=== PATIENT | female | born 1995 | race Hispanic/Latino ===

== ENCOUNTER 2019-05-03 23:09 | Emergency (ER) | payer MEDICARE, OTHER ==
[~2019-05-03] VITALS: Ht 149.9 cm; Wt 52.2 kg
--- OUTSIDE RECORDS SUMMARY | 2019-05-03 23:12 | XMS REPORT ---
Author Author [facility] Address Unknown Phone Unavailable Care Team Providers Care Drop Clipper Name Role Phone Unavailable Unavailable Problems This patient has no known problems. Allergies, Adverse Reactions, Alerts This patient has no known allergies or adverse reactions. Medications This patient has no known medications. Encounters Start Date/Time End Date/Time Encounter Type Admission Type Attending Clinicians Care Facility Care Department Encounter ID 2019-03-15 22:29:00 2019-03-15 22:29:00 Emergency E [facility] [id number] Results Test Description Test Time Test Comments Text Results Atomic Results Result Comments CT, SOFT TISSUE NECK, WITH IV CONTRAST 2018-07-14 17:22:00 FINAL REPORT History: History: Evaluate thyroid lesion.Comparison studies: Thyroid ultrasound . Technique: Axial, coronal and sagittal images from the skull base to the thoracic inlet.Coronal and sagittal images reconstructed from the axial data. Dose modulation, iterative reconstruction, and/or weight based adjustment of the mA/kV was utilized to reduce the radiation dose to as low as reasonably achievable. Intravenous contrast: 100 cc of Omnipaque 300. Findings: Thyroid gland: Complex cystic right inferior thyroid lobe lesion with internal septations measures 3.8 x 2.6 x 2.5 cm (SI x AP x TV) and correlates to lesion seen on prior ultrasound. No intralesional calcification identified. The lesion exerts mild mass effect on trachea which is otherwise patent. No evidence of tracheal invasion. The left thyroid lobe is homogeneous and normal in size. Soft tissues: Vagal nerve stimulator in place with leads in the anterior left neck with electrodes positioned in the posterior left carotid space at the C7 vertebral level. Pharynx: No mass, no enhancing abnormalities.Larynx: No mass or enhancing abnormalities. The left vocal cord is slightly medialized. Lymph nodes:No radiographically significant adenopathy. Vessels: Patent carotid and vertebral arteries.Patent bilateral internal jugular veins. Glands (parotid and submandibular): Normal in size and symmetric. No masses. Incidental 2 mm calcification along the lateral margin of the right submandibular easton and may reflect dystrophic calcification or sialolith. No glandular ductal dilatation. Orbits: No abnormalities.Paranasal sinuses: Clear.Temporal bones: No gross abnormalities.Skull base and facial bones: Intact. Cervical spine: Disc height maintained. Patent canal and foramina. Straight curvature may be positional. IMPRESSION: 1.Complex 3.8 cm right inferior thyroid lobe lesion exerts mild mass effect on the trachea which is otherwise patent. Recommend FNA to further evaluate.2.No radiographically significant cervical lymphadenopathy.3.Medialized left vocal fold which raises the possibility for left vocal cord paresis. Vocal cord mobility could assess by direct visualization.4.Left vagal nerve stimulator in place. Signed: Earl Martinez MDReport Verified Date/Time: 07/14/2018 17:22:23 Reading Location: [facility] Reading Room [address] [place] [address] , NECK 2018-07-01 12:38:00 Reason for Exam:->NECK MASS FINAL REPORT EXAM: Thyroid UltrasoundINDICATION: NECK MASS COMPARISON: None TECHNIQUE: Transverse and sagittal images were obtained of the thyroid gland. FINDINGS: Thyroid gland:Size: Right lobe: 6 x 2.5 x 3.4 cm, increased in sizeLeft lobe: 3 x 0.8 x 1.1 cm, Normal in size Isthmus: 0.2 cm, Normal in sizeAppearance: Homogeneous echotexture without increased vascularit yMasses/Nodules: Right lobe: 4 x 2.3 x 3.4 cm mixed solid and cystic (1 pt) nonvascular nodule in the superior and inferior pole with lobulated margin (2 pts) and multiple internal septations, lobjg-zfas-qkhm (0 pts), hypoechoic (2 pts), and no calcifications (0 pts). TR4c (>1.5 cm), Moderately Suspicious: FNA. Left lobe:None Parathyroid:No focal parathyroid masses. IMPRESSION: Multilobulated complex cyst with thick internal septations which appears to involve the right thyroid lobe but cannot exclude adjacent to it with compression of normal thyroid parenchyma. Recommend CT neck with contrast for better localization and characterization of the lesion and exclude a complicated brachial cleft cyst rather than a thyroid cyst. If CT neck demonstrates intrathyroid location of the lesion, then recommend: TR4c (>1.5 cm), Moderately Suspicious: FNA. TI-RADS Lexicon:TR1, Benign: No FNATR2, Not Suspicious: No FNA.TR3a (<1.5 cm): No follow-up.TR3b (1.5-2.5 cm), Mildly Suspicious: Follow at 1, 3, 5 years.TR3c (>2.5 cm), Mildly Suspicious: FNA.TR4a (<1.0 cm): No follow- up.TR4b (1.0-1.5 cm), Moderately Suspicious: Follow at 1, 2, 3, 5 years.TR4c (>1.5 cm), Moderately Suspicious: FNA.TR5a (<0.5 cm): No follow-up.TR5b (0.5-1.0 cm), Highly Suspicious: Follow at 1, 2, 3, 4, 5 years.TR5c (>1.0 cm), Highly Suspicious: FNA.*Rebiopsy if new suspicious features *No recommendation at this time for significant interval growth. Nodule Characteristics:*Benign features: cystic, hyperechoic, comet-tail artifact, complete halo*Minor suspicious features: solid, hypoechoic, other calcifications*Major suspicious features: microcalcifications, marked hypoechoic (less than strap muscle), suspicious lymph nodes, taller than wide, lobulated or ill-defined margins. Literature:ACR Thyroid Imaging, Reporting and Data System (TI-RADS): White Paper of the ACR TI- RADS Committee. J Am Ana Maria Radiol 2017. Signed: Nik Linares MDReport Verified Date/Time: 07/01/2018 12:38:57 Reading Location: [facility] Reading Room [address] [place] [address]
[2019-05-03 23:58] VITALS: BP 118/68
== END 2019-05-03 23:58 | disposition home or self-care (01) ==
LOC: FSED 23:09
DX: S01.21XA Laceration without foreign body of nose, initial encounter (principal); W20.8XXA Other cause of strike by thrown, projected or falling object, initial encounter; Y92.008 Other place in unspecified non-institutional (private) residence as the place of occurrence of the external cause
CPT/HCPCS: 99282

== ENCOUNTER 2019-06-02 01:15 | Emergency (ER) | payer OTHER ==
[~2019-06-02] VITALS: Ht 149.9 cm; Wt 54.4 kg
[2019-06-02 01:56] VITALS: BP 124/70
== END 2019-06-02 01:55 | disposition home or self-care (01) ==
LOC: FSED 01:15
DX: S00.511A Abrasion of lip, initial encounter (principal); W01.0XXA Fall on same level from slipping, tripping and stumbling without subsequent striking against object, initial encounter; Y92.008 Other place in unspecified non-institutional (private) residence as the place of occurrence of the external cause; G40.909 Epilepsy, unspecified, not intractable, without status epilepticus
CPT/HCPCS: 99282

== ENCOUNTER 2019-06-06 18:02 | Emergency (ER) | payer OTHER ==
[~2019-06-06] VITALS: Ht 149.9 cm; Wt 54.4 kg
--- NOTE | 2019-06-06 19:40 | Diagnostic Imaging Report ---
EXAMINATION: Head CT without contrast. HISTORY:Seizure and fall. COMPARISON:None. TECHNIQUE: Multidetector axial images were obtained from the foramen magnum to the vertex without contrast. The images were reconstructed using brain and bone algorithms. Thin section brain images were reformatted into coronal and sagittal planes. Dose modulation, iterative reconstruction, and/or weight based adjustment of the mA/kV was utilized to reduce the radiation dose to as low as reasonably achievable. Intravenous contrast: None IMAGE QUALITY: Acceptable. FINDINGS: Skull/scalp: No lytic or blastic. lesions. No surgical changes. Parenchyma: No abnormal density. No acute hemorrhage, mass or acute major vascular territorial infarct. Arteries: No density suggestive of thrombosis. Dural sinuses: No abnormal density suggestive of thrombosis. Ventricles: No hydrocephalus or displacement. Extra-axial spaces: No abnormal density. Brain volume: Normal for age. Craniocervical junction: No mass, Chiari malformation, or basilar invagination. Sella: No mass. Paranasal/mastoid sinuses: Imaged portions unremarkable. IMPRESSION: No intracranial abnormality. Signed by: Dr. Aranza Russo M.D. on 06/06/2019 7:37 PM
--- NOTE | 2019-06-06 19:49 | Diagnostic Imaging Report ---
History:Seizure and fall. Comparison studies: None Technique: Axial images were obtained through the maxillofacial region. Coronal and sagittal images reconstructed from the axial data. Dose modulation, iterative reconstruction, and/or weight based adjustment of the mA/kV was utilized to reduce the radiation dose to as low as reasonably achievable. Intravenous contrast: None Findings: Soft tissues: Mild perinasal soft tissue swelling. Bones: Acute displaced fracture of the nasal bone. Orbits: Globes: Intact Extra or intraconal abnormalities: None. Paranasal sinuses: Clear Incidental finding: Hypodense cystic lesion in the right lobe of thyroid gland is partially visualized and approximately measures 2.6 x 1.7 cm. Partially visualized radiopaque catheter in the left lateral neck. Metallic radiopaque density in left lateral deep neck space posterior lateral tubercle superior pole of left lobe of thyroid gland, possibly represents a surgical clip. Nonspecific prominent bilateral level 2 lymph nodes may be reactive. IMPRESSION: 1. Acute displaced fracture of the nasal bone with overlying soft tissue swelling. 2. No other acute posttraumatic abnormality. 3. Partially visualized 2.6 cm hypodense cystic lesion in right lobe of thyroid gland, can be followed up with dedicated thyroid ultrasound if previous workup has not been done. Signed by: Dr. Aranza Russo M.D. on 06/06/2019 7:46 PM
== END 2019-06-06 20:20 | disposition home or self-care (01) ==
LOC: FSED 18:02
DX: G40.909 Epilepsy, unspecified, not intractable, without status epilepticus (principal); F79 Unspecified intellectual disabilities; S02.2XXA Fracture of nasal bones, initial encounter for closed fracture; S01.511A Laceration without foreign body of lip, initial encounter; W18.30XA Fall on same level, unspecified, initial encounter; Y92.008 Other place in unspecified non-institutional (private) residence as the place of occurrence of the external cause
CPT/HCPCS: 70450; 70486; 99283

== ENCOUNTER 2019-07-10 21:44 | Emergency (ER) | payer OTHER ==
[~2019-07-10] VITALS: Ht 149.9 cm; Wt 54.9 kg
--- OUTSIDE RECORDS SUMMARY | 2019-07-10 21:48 | XMS REPORT | Clinical Summary ---
Author Author [facility] Address Unknown Phone Unavailable Care Team Providers Care Orthopedic Radiologic Technologist Name Role Phone PCP Unavailable Allergies Comments Active Allergy Reactions Severity Noted Date Carbamazepine Rash Low 07/13/2018 Medications Not on file Active Problems Not on file Encounters Care Team Description Date Type Specialty Ruth Ann Duarte MD 1, [facility] [address] Room Mass of right side of neck 07/13/2018 Hospital Computed Tomography Encounter after 07/09/2018 Social History Date Tobacco Use Types Packs/Day Years Used Never Assessed Sex Assigned at Date Recorded Not on file Industry Job Start Date Occupation Not on file Not on file Not on file Travel End Travel History Travel Start No recent travel history available. Last Filed Vital Signs Not on file Plan of Treatment Not on file Procedures Comments Procedure Name Priority Date/Time Associated Diag nosis CT NECK SOFT TISSUE WITH Routine 07/13/2018 Mass of right side of IV CONTRAST 12:36 PM CDT neck after 07/09/2018 Results * CT neck soft tissue with IV contrast (07/13/2018 12:36 PM CDT) Specimen Narrative Performed At FINAL REPORT Modality [facility] History: History: Evaluate thyroid lesi on. Comparison studies: Thyroid ultrasound . Technique: Axial, coronal and sagittal images from the skull base to the thoracic inlet. Coronal and sagittal images reconstruct ed from the axial data. Dose modulation, iterative reconstruction, a nd/or weight based adjustment of the mA/kV was utilized to reduce the radiation dose to as low as reasonably achievable. Intravenous contrast: 100 cc of Omnipaq ue 300. Findings: Thyroid gland: Complex cystic right inferior thyroid l obe lesion with internal septations measures 3.8 x 2.6 x 2.5 cm (SI x AP x TV) and correlates to lesion seen on prior ultrasound. No intralesional calcification identified. The lesion exerts mild mass effect on trachea which is otherwise patent. No evidence of trache al invasion. The left thyroid lobe is homogeneous and normal in size. Soft tissues: Vagal nerve stimulator in place with leads in the anterior left neck with electrodes posi tioned in the posterior left carotid space at the C7 vertebral level . Pharynx: No mass, no enhancing abnormal ities. Larynx: No mass or enhancing abnormalit ies. The left vocal cord is slightly medialized. Lymph nodes: No radiographically significant adenopa thy. Vessels: Patent carotid and vertebral arteries. Patent bilateral internal jugular veins . Glands (parotid and submandibular): Normal in size and symmetric.No mas ses. Incidental 2 mm calcification along the lateral margin of the right submandibular easton and may reflect dystrophic calcifi cation or sialolith. No glandular ductal dilatation. Orbits: No abnormalities. Paranasal sinuses: Clear. Temporal bones: No gross abnormalities. Skull base and facial bones:Intact. Cervical spine: Disc height maintained. Patent canal an d foramina. Straight curvature may be positional. IMPRESSION: 1.Complex 3.8 cm right inferior thyroid lobe lesion exerts mild mass effect on the trachea which is otherwis e patent. Recommend FNA to further evaluate. 2.No radiographically significant cervi amy lymphadenopathy. 3.Medialized left vocal fold which rais es the possibility for left vocal cord paresis. Vocal cord mobility could assess by direct visualization. 4.Left vagal nerve stimulator in place. Signed: Earl Martinez MD Report Verified Date/Time: 9 17:22:23 Reading Location: [facility] Reading Ro 2 - B01.626 Procedure Note Interface, External Ris In - 07/14/2018 5:24 PM CDT FINAL REPORT History: History: Evaluate thyroid lesion. Comparison studies: Thyroid ultrasound . Technique: Axial, coronal and sagittal images from the skull base to the thoracic inlet. Coronal and sagittal images reconstructed from the axial [...] vertebral level. Pharynx: No mass, no enhancing abnormalities. Larynx: No mass or enhancing abnormalities. The left vocal cord is slightly medialized. Lymph nodes: No radiographically significant adenopathy. Vessels: Patent carotid and vertebral arteries. Patent bilateral internal jugular veins. Glands (parotid and submandibular): Normal in size and symmetric. No masses. Incidental 2 mm calcification along the lateral margin of the right submandibular easton and may reflect dystrophic calcification or sialolith. No glandular ductal dilatation. Orbits: No abnormalities. Paranasal sinuses: Clear. Temporal bones: No gross abnormalities. Skull base and facial bones: Intact. Cervical spine: Disc height maintained. Patent canal and foramina. Straight curvature may be positional. IMPRESSION: 1.Complex 3.8 cm right inferior thyroid lobe lesion exerts mild mass effect on the trachea which is otherwise patent. Recommend FNA to further evaluate. 2.No radiographically significant cervic al lymphadenopathy. 3.Medialized left vocal fold which raise s the possibility for left vocal cord paresis. Vocal cord mobility could assess by direct visualization. 4.Left vagal nerve stimulator in place. Signed: Earl Martinez MD Report Verified Date/Time: 07/14/2018 17:22:23 Reading Location: [facility] Reading Room [address] [place] [address] Performing Organization Address City/State/Zipcode Ph one Number GE RIS after 07/09/2018 Insurance Payer Benefit Subscriber ID Type Phone Address Plan / Group MEDICAID MEDICAID xxxxxxxxx Medicaid OF [place]
--- OUTSIDE RECORDS SUMMARY | 2019-07-10 21:48 | XMS REPORT ---
Author Author [facility] t Organization [facility] Address [address] [place] [address] Phone Unavailable Care Team Providers Care Supervisory Cbp Officer Name Role Phone NONSTAFF PCP Unavailable JEREMY MCCARTHY Attphys Unavailable Payers Payer Name Policy Type Policy Number Effective Date Expiration Date S ource [facility] [employer] [id number] 2019 00:00:00 2020 00:00:00 [facility] [employer] [id number] [facility] Problems This patient has no known problems. Allergies, Adverse Reactions, Alerts Allergy Name Allergy Type Status Severity Reaction(s) Onset Date Inacti ve Date Treating Clinician Comments Source Carbamazepine Allergy to Substance Active Unknown 2019-06-02 00:00 :00 [facility] Medications This patient has no known medications. Procedures Procedure Date / Time Performed Performing Clinician Sourc e RPR F/E/E/N/L/M 2.5 CM/< 2019-05-03 00:00:00 TANMAY MCCARTHY [facility] Encounters Start Date/Time End Date/Time Encounter Type Admission Type [facility] Care Department Encounter ID Source 2019-06-06 18:02:00 2019-06-06 20:20:00 Departed Emergency Room 1 TANMAY MCCARTHY [facility] [id number] [facility] 2019-06-02 01:15:00 2019-06-02 01:55:00 Departed Emergency Room [facility] [id number] [facility] 2019-05-03 23:09:00 2019-05-03 23:58:00 Departed Emergency Room [facility] [id number] [facility] 2019-03-15 22:29:00 2019-03-15 22:29:00 Emergency E [id number] Results Test Description Test Time Test Comments Results Result Comments Source CT MAX/FACPARANASA SIN WO-HOPD 2019-06-06 19:37:00 [place] [address] Patient Name: SALENA RYAN MR #: [id number] : 1995 Age/Sex: 23/F Req #: [id number] Adm Physician: Ordered by: TANMAY MCCARTHY Report #: [id number] Location: [facility] Room/Bed: Procedure: [id number] HOPD/CT MAX/FACPARANASA SIN WO-HOPD Exam Date: Exam Time: REPORT STATUS: Signed History:Seizure and fall. Comparison studies: None Technique: Axial images were obtained through the maxillofacial region. Coronal and sagittal images reconstructed from the axial data. Dose modulation, iterative reconstruction, and/or weight based adjustment of the mA/kV was utilized to reduce the radiation dose to as low as reasonably achievable. Intravenous contrast: None Findings: Soft tissues: Mild perinasal soft tissue swelling. Bones: Acute displaced fracture of the nasal bone. Orbits: Globes: Intact Extra or intraconal abnormalities: None. Paranasal sinuses: Clear Incidental finding: Hypodense cystic lesion in the right lobe of thyroid gland is partially visualized and approximately measures 2.6 x 1.7 cm. Partially visualized radiopaque catheter in the left lateral neck. Metallic radiopaque density in left lateral deep neck space posterior lateral tubercle superior pole of left lobe of thyroid gland, possibly represents a surgical clip. Nonspecific prominent bilateral level 2 lymph nodes may be reactive. IMPRESSION: 1. Acute displaced fracture of the nasal bone with overlying soft tissue swelling. 2. No other acute posttraumatic abnormality. 3. Partially visualized 2.6 cm hypodense cystic lesion in right lobe of thyroid gland, can be followed up with dedicated thyroid ultrasound if previous workup has not been done. Signed by: Dr. Aranza Russo M.D. on 06/06/2019 7:46 PM Dictated By: ARANZA RUSSO MD 45 Transcribed By: PANCHO on 06/06/191945 COPY TO: TANMAY MCCARTHY CT BRAIN [facility] 2019-06-06 19:34:00 [place] [address] Patient Name: SALENA RYAN MR #: [id number] : 1995 Age/Sex: 23/F Req #: [id number] Adm Physician: Ordered by: TANMAY MCCARTHY Report #: [id number] Location: [facility] Room/Bed: Procedure: [id number] HOPD/CT BRAIN -[facility] Exam Date: Exam Time: REPORT STATUS: Signed EXAMINATION: Head CT without contrast. HISTORY:Seizure and fall. COMPARISON:None. TECHNIQUE: Multidetector axial images were obtained from the foramen magnum to the vertex without contrast. The images were reconstructed using brain and bone algorithms. Thin section brain images were reformatted into coronal and sagittal planes. Dose modulation, iterative reconstruction, and/or weight based adjustment of the mA/kV was utilized to reduce the radiation dose to as low as reasonably achievable. Intravenous contrast: None IMAGE QUALITY: Acceptable. FINDINGS: Skull/scalp: No lytic or blastic. lesions. No surgical galicia es. Parenchyma: No abnormal density. No acute hemorrhage, mass or acute major vascular territorial infarct. Arteries: No density suggestive of thrombosis. Dural sinuses: No abnormal density suggestive of thrombosis. Ventricles: No hydrocephalus or displacement. Extra- axial spaces: No abnormal density. Brain volume: Normal for age. Craniocervical junction: No mass, Chiari malformation, or basilar invagination. Sella: No mass. Paranasal/mastoid sinuses: Imaged portions unremarkable. IMPRESSION: No intracranial abnormality. Signed by: Dr. Aranza Russo M.D. on 06/06/2019 7:37 PM Dictated By: ARANZA RUSSO MD 36 Transcribed By: PANCHO on 06/06/191936 COPY TO: TANMAY MCCARTHY CT, SOFT TISSUE NECK, WITH IV CONTRAST [...] submandibular): Normal in size and symmetric. No m asses. Incidental 2 mm calcification along the lateral [...] patent. Recommend FNA to further evaluate.2.No radiographically signi ficant cervical lymphadenopathy.3.Medialized left vocal fold which raises the possibility for left vocal cord paresis. Vocal cord mobility could assess by direct visualization.4.Left vagal nerve stimulator in place. Signed: Earl Martinez MDReport Verified Date/Time: 07/14/2018 17:22:23 Reading Location: [facility] Reading Room [address] [place] [address] , NECK 2018-07-01 12:38:00 Reason for Exam:->NECK [...] margin (2 pts) and multiple internal septations, erowv-doxx-odem (0 pts), hypoechoic (2 pts), and no [...] J Am Ana Maria Radiol 2017. Signed: Ирина Linares MDReport Verified Date/Time: 07/01/2018 12:38:57 Reading Location: [facility] Reading Room [address] [place] [address]
--- NOTE | 2019-07-10 22:27 | Emergency Department Note ---
History of Present Illnes History of Present Illness Chief Complaint: upper lip laceration, left little finger pain s/p seizure and fall History of Present Illness This is a 23 year old female . 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 Onset (how long ago): minute(s) (45) Location: upper lip laceration/ left 5th finger Quality: sharp Radiation: non-radiation Severity: moderate Onset quality: gradual Duration (how long): hour(s) (0.75) Timing of current episode: constant Progression: unchanged Chronicity: new Context: recent illness, recent surgery, recent immobilization, recent travel; trauma/injury (fall secondary to seizure); new medications, hx of DVT/PE, non- compliance w/ medications, other Relieving factors: none Exacerbating factors: movement Associated symptoms: denies other symptoms Treatments prior to arrival: none Past Medical/Family History Physician Review I have reviewed the patient's past medical and family history. Any updates have been documented here. Past Medical History Recent Fever: No Clinical Suspicion of Infectio: No New/Unexplained Change in Ment: No Past Medical History: Seizure Disorder Other Medical History: MENTAL RETARDATION DEVELOPMENTAL DELAY (ABOUT 6 YEARS OLD) Other Surgery: VAGAL NERVE IMPLANT Social History Smoking Cessation: Never Smoker Alcohol Use: None Any Illegal Drug Use: No TB Exposure/Symptoms: No Physically hurt or threatened: No Other Last Tetanus: UTD Any Pre-Existing Lines (PICC,: No Is patient up to date on immun: Yes Last Flu: 02/03 Last Pneumovax: NA Review of Systems Review of Systems Constitutional: no symptoms EENTM: as per HPI Cardiovascular: no symptoms Respiratory: no symptoms Gastrointestinal: no symptoms Genitourinary: no symptoms Musculoskeletal: as per HPI Neurological: no symptoms Psychological: no symptoms Endocrine: no symptoms Hematological/Lymphatic: no symptoms Review of other systems All other systems reviewed and negative. Physical Exam Related Data Allergies: Coded Allergies: carbamazepine (Verified Allergy, Unknown, 06/02/19) Triage Vital Signs Vital Signs Date Time Temp Pulse Resp B/P (MAP) Pulse Ox O2 Delivery O2 Flow Rate FiO2 07/10/19 21:50 98.4 80 18 113/75 100 Vital signs reviewed: Yes Physical Exam CONSTITUTIONAL Constitutional: well-developed, well-nourished HENT HENT: normocephalic, atraumatic, oropharynx clear/moist, nose normal, other (2 cm laceration inner upper lip.) HENT L/R: left ext ear normal, right ext ear normal EYES Eyes: PERRL, conjunctivae normal NECK Neck: ROM normal PULMONARY Pulmonary: effort normal, breath sounds normal CARDIOVASCULAR Cardiovascular: regular rhythm, heart sounds normal, capillary refill normal, normal rate GASTROINTESTINAL Abdominal: soft, nontender, bowel sounds normal GENITOURINARY Genitourinary: exam deferred SKIN Skin: warm, dry MUSCULOSKELETAL Musculoskeletal: ROM normal, tenderness (left 5th digit), swelling (left 5th digit) NEUROLOGICAL Neurological: alert, oriented x 3, no gross motor or sensory deficits PSYCHOLOGICAL Psychological: mood/affect normal, judgement normal Results Imaging Imaging results reviewed: Yes (left 5th digit xray= neg) Critical Care Time Subsequent provider I assumed direction of critical care for this patient from another provider of my specialty. Assessment & Plan Assessment & Plan Final Impression: (1) Lip laceration (2) Finger sprain (3) Seizure Assessment & Plan take ibuprofen for pain. take prescribed augmentin. follow up with your family doctor. janes tape fingers. f/u with ortho Depart Disposition: HOME, SELF-CARE Last Vital Signs Date Time Temp Pulse Resp B/P (MAP) Pulse Ox O2 Delivery O2 Flow Rate FiO2 07/10/19 21:50 98.4 80 18 113/75 100 Home Meds Active Scripts Amoxicillin/Potassium Clav (AUGMENTIN ES-600 SUSPENSION) 600 Mg/5 Ml Susp.recon, 875 MG PO Q12H for 10 Days, #150 ML Prov:TANMAY MCCARTHY 07/10/19 TANMAY MCCARTHY July 10, 2019 22:27
--- NOTE | 2019-07-10 22:30 | NUR ---
JIMBO TAPED WITH COBAN PER V/O
[2019-07-10] MEDS ORDERED: AUGMENTIN600 MG/5 M PO (22:32)
--- NOTE | 2019-07-10 22:35 | Diagnostic Imaging Report ---
Exam: Left fifth finger radiographs-3 views Clinical History: Pain, trauma. Comparison: None. Findings/Impression: No evidence of acute fracture or malalignment. Soft tissue edema in the fifth finger. Signed by: Dr. Trent Sorto MD on 07/10/2019 10:32 PM
[2019-07-10 22:40] VITALS: BP 113/75
== END 2019-07-10 22:40 | disposition home or self-care (01) ==
LOC: FSED 21:44
DX: S01.511A Laceration without foreign body of lip, initial encounter (principal); S63.617A Unspecified sprain of left little finger, initial encounter; W01.0XXA Fall on same level from slipping, tripping and stumbling without subsequent striking against object, initial encounter; Y92.008 Other place in unspecified non-institutional (private) residence as the place of occurrence of the external cause; G40.909 Epilepsy, unspecified, not intractable, without status epilepticus
CPT/HCPCS: 99283

== ENCOUNTER 2021-05-08 18:26 | Emergency (ER) | payer OTHER ==
[~2021-05-08] VITALS: Ht 149.9 cm; Wt 54.9 kg
[~2021-05-08 18:26] MED LIST: AUGMENTIN600 MG/5 M PO
[2021-05-08] MEDS ORDERED: LIDOCAINE 1% 5ML-MPF INJ ONE (18:45)
[2021-05-08] MEDS ORDERED: LIDOCAINE HCL 1% LOCAL INJ 20 ML VIAL ONE (19:02)
[2021-05-08] MEDS ORDERED: BACITRACIN ZINC 0.9GM TP ONE ×2 (19:37→19:45)
[2021-05-08] MEDS ORDERED: LIDOCAINE HCL 1% LOCAL INJ 20 ML VIAL INJ ONE (19:45)
[2021-05-09] MEDS ORDERED: NEOMYCIN/POLYMYXIN/BACITRACIN 15 GM TUBE TOP SCH (09:00)
== END 2021-05-08 19:49 | disposition home or self-care (01) ==
LOC: ER 18:36
DX: S01.111A Laceration without foreign body of right eyelid and periocular area, initial encounter (principal); W01.0XXA Fall on same level from slipping, tripping and stumbling without subsequent striking against object, initial encounter; Y92.89 Other specified places as the place of occurrence of the external cause; G40.909 Epilepsy, unspecified, not intractable, without status epilepticus; F79 Unspecified intellectual disabilities
CPT/HCPCS: 12013; 99283; J2001

== ENCOUNTER 2021-10-04 20:38 | Emergency (ER) | payer OTHER ==
[~2021-10-04] VITALS: Ht 149.9 cm; Wt 54.9 kg
[2021-10-04 21:10] LABS: BASOPHILS % 0.3 % (0.0-1.0); EOSINOPHILS # (AUTO) 0.1 (0.0-0.4); EOSINOPHILS % 1.1 % (0.0-6.0); HEMATOCRIT 40.3 % (34.2-44.1); LYMPHOCYTES # (AUTO) 2.1 (1.0-3.2); LYMPHOCYTES % 32.3 % (18.0-39.1); MEAN CORPUSCULAR HEMOGLOBIN 28.7 pg (28-32); MEAN CORPUSCULAR HGB CONC 32.3 g/dL (31-35); MONOCYTES # (AUTO) 0.5 (0.2-0.8); MONOCYTES % 8.2 % (4.4-11.3); NEUTROPHILS # (AUTO) 3.7 (2.1-6.9); NEUTROPHILS % 57.9 % (38.7-80.0); PLATELET COUNT 251 x10e3/uL (140-360); RED BLOOD COUNT 4.53 x10e6/uL (3.6-5.1); RED CELL DISTRIBUTION WIDTH 12.4 % (11.7-14.4)
[2021-10-04] MEDS ORDERED: BUPIVACAINE HCL 0.25% 10ML MPF VIAL INJ ONE ×2 (21:30→22:46)
[2021-10-04 21:33] LABS: ALBUMIN 4.2 g/dL (3.5-5.0); ALBUMIN/GLOBULIN RATIO 1.4 (0.8-2.0); ANION GAP 14.6 mmol/L (8-16); CALCIUM 9.1 mg/dL (8.4-10.2); CREATININE, SERUM 0.93 mg/dL (0.57-1.11); POTASSIUM 3.6 mmol/L (3.5-5.1)
== END 2021-10-04 23:19 | disposition home or self-care (01) ==
LOC: ER 20:54
DX: S02.2XXA Fracture of nasal bones, initial encounter for closed fracture (principal); S01.511A Laceration without foreign body of lip, initial encounter; W18.2XXA Fall in (into) shower or empty bathtub, initial encounter; Y93.E1 Activity, personal bathing and showering; Y92.89 Other specified places as the place of occurrence of the external cause; G40.909 Epilepsy, unspecified, not intractable, without status epilepticus; F79 Unspecified intellectual disabilities
CPT/HCPCS: 36415; 70450; 70486; 72125; 80053; 85025; 99283

== ENCOUNTER 2022-01-19 13:30 | Emergency (ER) | payer OTHER ==
[~2022-01-19] VITALS: Ht 157.5 cm; Wt 65.8 kg
[2022-01-19 14:20] LABS: BASOPHILS % 0.2 % (0.0-1.0); EOSINOPHILS % 0.5 % (0.0-6.0); HEMATOCRIT 38.6 % (34.2-44.1); HEMOGLOBIN 12.2 g/dL (12.0-16.0); LYMPHOCYTES # (AUTO) 1.1 (1.0-3.2); LYMPHOCYTES % 20.8 % (18.0-39.1); MEAN CORPUSCULAR HEMOGLOBIN 28.6 pg (28-32); MEAN CORPUSCULAR HGB CONC 31.6 g/dL (31-35); MEAN CORPUSCULAR VOLUME 90.4 fL (81-99); MONOCYTES # (AUTO) 0.5 (0.2-0.8); MONOCYTES % 9.3 % (4.4-11.3); NEUTROPHILS # (AUTO) 3.8 (2.1-6.9); NEUTROPHILS % 68.8 % (38.7-80.0); PLATELET COUNT 245 x10e3/uL (140-360); RED BLOOD COUNT 4.27 x10e6/uL (3.6-5.1); RED CELL DISTRIBUTION WIDTH 12.5 % (11.7-14.4)
[2022-01-19 14:31] LABS: CLARITY,URINE HAZY (CLEAR); COLOR,URINE YELLOW (YELLOW); KETONES,URINE TRACE (NEGATIVE); LEUKOCYTE ESTERASE ,URINE NEGATIVE (NEGATIVE); NITRITE,URINE NEGATIVE (NEGATIVE); PROTEIN,URINE DIPSTICK NEGATIVE (NEGATIVE); URINE UROBILINOGEN 0.2 mg/dL (0.2 - 1)
[2022-01-19 14:32] LABS: BACTERIA,URINE FEW /HPF; EPITHELIAL CELLS,URINE FEW /LPF; RBC,URINE 0-5 /HPF (0-5); WBC,URINE (MAN) 0-5 /HPF (0-5)
[2022-01-19 14:38] LABS: ALBUMIN 4.3 g/dL (3.5-5.0); ALBUMIN/GLOBULIN RATIO 1.4 (0.8-2.0); ANION GAP 14.7 mmol/L (8-16); CALCIUM 9.4 mg/dL (8.4-10.2); CREATININE, SERUM 0.74 mg/dL (0.57-1.11); POTASSIUM 3.7 mmol/L (3.5-5.1)
[2022-01-19] MEDS ORDERED: ONDANSETRON HCL 4 MG ORAL DISINTEGRATING TAB PO ONE (15:00)
[2022-01-19] MEDS ORDERED: ONDANSETRON ODT4 MG PO (15:21)
== END 2022-01-19 15:37 | disposition home or self-care (01) ==
LOC: ER 13:34
DX: R11.2 Nausea with vomiting, unspecified (principal); B34.9 Viral infection, unspecified; J02.9 Acute pharyngitis, unspecified; J34.89 Other specified disorders of nose and nasal sinuses; G40.909 Epilepsy, unspecified, not intractable, without status epilepticus; F79 Unspecified intellectual disabilities; Z20.822 Contact with and (suspected) exposure to COVID-19
CPT/HCPCS: 36415; 80053; 81001; 83518; 84702; 85025; 87070; 99284; Q0162; U0002

== ENCOUNTER 2023-11-18 19:47 | Emergency (ER) | payer OTHER ==
[~2023-11-18] VITALS: Ht 157.5 cm; Wt 65.8 kg
[~2023-11-18 19:47] MED LIST changes: +ONDANSETRON ODT4 MG PO
[2023-11-18 20:53] LABS: BASOPHILS % 0.2 % (0.0-1.0); EOSINOPHILS # (AUTO) 0.1 (0.0-0.4); EOSINOPHILS % 1.1 % (0.0-6.0); HEMATOCRIT 42.5 % (34.2-44.1); HEMOGLOBIN 13.6 g/dL (12.0-16.0); LYMPHOCYTES # (AUTO) 1.9 (1.0-3.2); MEAN CORPUSCULAR HEMOGLOBIN 28.8 pg (28-32); MONOCYTES # (AUTO) 0.8 (0.2-0.8); MONOCYTES % 8.2 % (4.4-11.3); NEUTROPHILS # (AUTO) 6.5 (2.1-6.9); NEUTROPHILS % 70.1 % (38.7-80.0); PLATELET COUNT 301 x10e3/uL (140-360); RED BLOOD COUNT 4.72 x10e6/uL (3.6-5.1); RED CELL DISTRIBUTION WIDTH 12.7 % (11.7-14.4); WHITE BLOOD COUNT 9.26 x10e3/uL (4.8-10.8)
[2023-11-18 21:10] LABS: ALBUMIN 4.4 g/dL (3.5-5.0); ALBUMIN/GLOBULIN RATIO 1.3 (0.8-2.0); ANION GAP 15.1 mmol/L (8-16); BILIRUBIN,TOTAL 0.2 mg/dL (0.2-1.2); CALCIUM 9.8 mg/dL (8.4-10.2); CREATININE, SERUM 1.01 mg/dL (0.57-1.11); POTASSIUM 4.1 mmol/L (3.5-5.1); TOTAL PROTEIN 7.8 g/dL (6.5-8.1)
[2023-11-18] MEDS ORDERED: LIDOCAINE 1% W/EPINEPHRINE 20 ML VIAL ONE (23:28)
[2023-11-19] MEDS ORDERED: DIPHENHYDRAMINE HCL 25 MG CAP PO ONE
[2023-11-19 00:24] VITALS: PULSE 109; RESP 18; TEMP 99.9
[2023-11-19] MEDS: ACETAMINOPHEN 325 MG TAB PO ONE (00:28)
[2023-11-19] MEDS ORDERED: ACETAMINOPHEN 325 MG TAB ONE (00:32)
[2023-11-19 01:26] VITALS: BP 131/80; PULSE 99; RESP 17; TEMP 98.7; O2SAT 100
[2023-11-19] MEDS: LIDOCAINE 1% W/EPINEPHRINE 20 ML VIAL INJ ONE (02:38)
== END 2023-11-19 01:30 | disposition home or self-care (01) ==
LOC: ER 20:38
DX: S01.81XA Laceration without foreign body of other part of head, initial encounter (principal); W01.0XXA Fall on same level from slipping, tripping and stumbling without subsequent striking against object, initial encounter; Y92.89 Other specified places as the place of occurrence of the external cause; G40.909 Epilepsy, unspecified, not intractable, without status epilepticus; F79 Unspecified intellectual disabilities
CPT/HCPCS: 36415; 70450; 72125; 80053; 84702; 85025; 99284